=== PATIENT | female | born 1960 | race Caucasian/White ===

== ENCOUNTER 2016-06-06 09:34 | Emergency (ER) | payer OTHER ==
[~2016-06-06] VITALS: Ht 152.4 cm; Wt 71.5 kg
[~2016-06-06 09:34] MED LIST: ASPI-664 PO; IBUP-1542 PO; ZOC20 PO
[2016-06-06 09:51] VITALS: Ht 152.4 cm; Wt 71.5 kg
[2016-06-06] MEDS ORDERED: CYCL-319 PO (12:19)
[2016-06-06] MEDS ORDERED: IBUP-1542 PO (12:19)
--- NOTE | 2016-06-06 12:51 | ERD ---
ER Documentation Chief Complaint Date/Time DATE: 06/06/16 TIME: 12:44 Chief Complaint LOWER BACK PAIN X 2 DAYS HPI 56-year-old female with a past medical history of hypertension and status post cholecystectomy presents to the ED complaining of lower back pain that started 1 week ago and was worsened 3 days ago. Patient reports that she was carrying a 40 pound laundry bag and her back started hurting. Describes the pain as achy and rates it a 10 out of 10. States that she has not been taking any medications. Denies any abdominal pain, nausea, vomiting, dysuria, urgency, frequency, hematuria, flank pain, fever, chills chest pain, shortness of breath. ROS All systems reviewed and are negative except as per history of present illness. Medications Home Meds Active Scripts Cyclobenzaprine Hcl* (Cyclobenzaprine Hcl*) 10 Mg Tablet, 10 MG PO TID, #15 TAB Prov:FAVIAN KELLOGG PA-C 06/06/16 Ibuprofen* (Motrin*) 600 Mg Tab, 600 MG PO Q6, #30 TAB take with food Prov:FAVIAN KELLOGG PA-C 06/06/16 Reported Medications Simvastatin (Simvastatin) 20 Mg Tablet, 20 MG PO HS, TAB 12/23/13 Ibuprofen* (Ibuprofen*) 600 Mg Tablet, 600 MG PO BID Y for PAIN, TAB 12/23/13 Aspirin* (Aspirin* (EC)) 81 Mg Tablet.dr, 81 MG PO DAILY, TAB 12/23/13 Allergies Allergies: Coded Allergies: No Known Allergy (Unverified , 12/23/13) PMhx/Soc History of Surgery: No Anesthesia Reaction: No Hx Neurological Disorder: No Hx Respiratory Disorders: No Hx Cardiac Disorders: No Hx Psychiatric Problems: No Hx Miscellaneous Medical Probl: Yes (HTN, HIGH LIPIDEMIA) Hx Alcohol Use: No Hx Substance Use: No Hx Tobacco Use: No Smoking Status: Never smoker Physical Exam Vitals Vital Signs Date Time Temp Pulse Resp B/P Pulse Ox O2 Delivery O2 Flow Rate FiO2 06/06/16 09:51 98.0 58 18 140/74 98 Physical Exam Const: [id number], well-nourished. In no acute distress. Head: Atraumatic, normocephalic Eyes: Normal Conjunctiva without injection. No purulent discharge. ENT: Normal external ear, nose. Moist oropharynx without tonsillar exudates. Non -erythematous pharynx. Uvula midline. No drooling. No trismus. Neck: No cervical midline tenderness. Full range of motion. No meningismus. No cervical lymphadenopathy. No JVD. Resp: Clear to auscultation bilaterally. No wheezing, rhonchi, rales, or crackles. No accessory muscle use. No retractions. Cardio: Regular rate and rhythm. No murmurs, rubs or gallops. Abd: Soft, nontender non distended. Normal bowel sounds. No palpable masses. No rebound tenderness. No guarding. Negative McBurney's point. Negative psoas sign. Negative obturator sign. Skin: No petechiae or rashes Back: No midline tenderness. No CVA tenderness. Tenderness palpation of the left lumbar muscles. Full range of motion with flexion, extension, rotational movements. Ext: No cyanosis, or edema. Neur: Awake and alert. Normal gait. Normal coordination. Psych: Normal Mood and Affect Procedures/MDM This is a 56-year-old female with a past medical history of hypertension presents to the ED complaining of lower back pain that started 1 week ago and has worsened 3 days ago. Patient is afebrile and nontoxic-appearing. Patient has normal vital signs. Patient likely has muscular pain since the pain is reproducible. Patient is ambulating here in the ED without difficulty. Denies saddle anesthesia, numbness or tingling, urine or bowel incontinence, weakness. Low suspicion for cauda equina syndrome, cord compression, nephrolithiasis, aortic aneurysm, aortic dissection, epidural abscess, spinal hematoma, malignancy, pyelonephritis, degenerative disc disease, spinal stenosis, or other emergent conditions. Discharge medications: Flexeril, ibuprofen Follow up with primary care physician in 1-2 days. Instructed patient to return to the ED sooner for any worsening symptoms. Patient's questions were answered. Patient understood and agreed with discharge plan. Patient discharged stable. Departure Diagnosis: Primary Impression: Back pain Condition: Stable Patient Instructions: Back Pain (Acute Or Chronic) Additional Instructions: Llame al doctor MAANA y tony linh KIM PARA DENTRO DE 1-2 MARTINES.Dgale a la secretaria que nosotros le instruimos hacer esta kim.Avise o llame si urban condicin se empeora antes de la kim. Regresa aqui si peor o no mejor. FAVIAN KELLOGG PA-C Jun 06, 2016 12:51
== END 2016-06-06 12:31 | disposition home or self-care (01) ==
LOC: FTE 09:34
DX: M54.5 Low back pain (principal); I10 Essential (primary) hypertension; Z79.82 Long term (current) use of aspirin
CPT/HCPCS: 99283